=== PATIENT | female | born 1985 | race African-American/Black ===

== ENCOUNTER 2017-01-09 18:38 | Emergency (ER) | payer MEDICAID ==
[~2017-01-09] VITALS: Ht 167.6 cm; Wt 79.0 kg
[2017-01-09 18:41] VITALS: BP 143/95
== END 2017-01-09 19:43 | disposition left against medical advice (07) ==
LOC: ER 18:38
DX: R51 Headache (principal); Z53.21 Procedure and treatment not carried out due to patient leaving prior to being seen by health care provider

== ENCOUNTER 2019-02-11 20:29 | Emergency (ER) | payer SELFPAY ==
[~2019-02-11] VITALS: Ht 167.6 cm; Wt 90.0 kg
[2019-02-11] MEDS ORDERED: ONDANSETRON HCL 4MG/2ML INJ IV STA (21:59)
[2019-02-11] MEDS ORDERED: SODIUM CHLORIDE 0.9% 1,000 ML IV ONE (21:59)
[2019-02-11] MEDS ORDERED: LORAZEPAM 2MG/ML CPJ IV STA (21:59)
[2019-02-11] MEDS ORDERED: FOLIC ACID 1 MG, THIAMINE HCL 100 MG, MVI, ADULT NO.1 10 ML in DEXTROSE 5% WATER 1,000 ML IV ONE ×4 (22:00)
[2019-02-11 22:36] LABS: BASOPHILS % 0.9 % (0.0-2.0); EOSINOPHILS % 0.4 % (0.0-5.0); HEMATOCRIT. 43.9 % (36.0-48.0); HEMOGLOBIN. 14.7 g/dL (12.0-16.0); LYMPHOCYTES % 30.3 % (20.0-50.0); MEAN CORPUSCULAR HEMOGLOBIN 30.6 pg (28.0-32.0); MEAN CORPUSCULAR VOLUME 91.3 fL (81.0-99.0); MONOCYTES % 10.9 % (2.0-8.0); NEUTROPHILS % 57.5 % (40.0-76.0); PLATELET 197 x1000/uL (130-400)
[2019-02-11 22:40] LABS: HCG SCREEN NEGATIVE
[2019-02-11 22:41] LABS: CHLORIDE 111 mEq/L (98-107)
[2019-02-11 22:46] LABS: ETHANOL BLOOD 223 mg/dL
[2019-02-11 22:51] LABS: CREATINE KINASE 292 IU/L (26-192)
[2019-02-12] LABS: CLARITY URINE CLOUDY (CLEAR); COLOR URINE YELLOW (YELLOW); KETONES URINE 1+ (NEGATIVE); LEUKOCYTE ESTERASE URINE NEGATIVE (NEGATIVE); NITRITE URINE NEGATIVE (NEGATIVE); OCCULT BLOOD URINE NEGATIVE (NEGATIVE); PROTEIN URINE 1+ (NEGATIVE); SPECIFIC GRAVITY URINE 1.015 (1.005-1.030); UROBILINOGEN URINE 0.2 E.U./dL (0.2-1.0)
[2019-02-12] MEDS ORDERED: KCL 20MEQ/100ML PREMIX 100 ML IV ONE
[2019-02-12 00:10] LABS: *AMPHETAMINES SCREEN URINE NEGATIVE (NEGATIVE)
[2019-02-12 00:11] LABS: *BARBITURATES SCREEN URINE NEGATIVE (NEGATIVE); *BENZODIAZEPINES SCREEN URINE NEGATIVE (NEGATIVE); *COCAINE SCREEN URINE NEGATIVE (NEGATIVE); METHADONE URINE SCREEN NEGATIVE (NEGATIVE); OPIATES URINE SCREEN NEGATIVE (NEGATIVE); PHENCYCLIDINE URINE SCREEN NEGATIVE (NEGATIVE)
[2019-02-12 00:12] LABS: CANNABINOID URINE SCREEN NEGATIVE (NEGATIVE)
[2019-02-12] MEDS ORDERED: POTASSIUM CHLORIDE 20MEQ TABLET SR PO ONE (00:30)
[2019-02-12 02:58] LABS: CHLORIDE 111 mEq/L (98-107)
[2019-02-12 05:45] VITALS: BP 121/76
== END 2019-02-12 05:49 | disposition home or self-care (01) ==
LOC: ER 20:29
DX: R00.0 Tachycardia, unspecified (principal); E87.6 Hypokalemia; F10.129 Alcohol abuse with intoxication, unspecified; Y90.7 Blood alcohol level of 200-239 mg/100 ml; F41.9 Anxiety disorder, unspecified; F17.200 Nicotine dependence, unspecified, uncomplicated; G47.00 Insomnia, unspecified
CPT/HCPCS: 36415; 71045; 80048; 80053; 80305; 80307; 80320; 80329; 81003; 81025; 82550; 83735; 84443; 84484; 84703; 85025; 93005; 96365; 96366; 96375; 99284; 99406; J2060; J2405; J3411; J3480; J3490; J7030; J7070; Z7610; G0480